=== PATIENT | male | born 1965 | race Caucasian/White ===

== ENCOUNTER 2019-09-18 21:05 | Emergency (ER) | payer MEDICARE ==
[2019-09-18] MEDS ORDERED: Ketorolac 60 MG/2 ML SDV IM ONE (21:22)
--- NOTE | 2019-09-18 21:22 | EDM.PDOC ---
ED HPI GENERAL MEDICAL PROBLEM - General Chief Complaint: Headache Stated Complaint: HEADACHES Time Seen by Provider: 09/18/19 21:22 Source of Information: Reports: Patient History Limitations: Reports: No Limitations - History of Present Illness INITIAL COMMENTS - FREE TEXT/NARRATIVE: HISTORY AND PHYSICAL: History of present illness: Patient is a 54-year-old male who presents to the emergency room with complaints of a generalized headache that has been dull but consistent x 1 week. He voices concern as he typically does not get headaches and if he does they usually only last a few hours and resolve on their own. Currently rating the pain approximately a 3 out of 10. Denies any photophobia or noise sensitivity. Patient denies any fever, chills, headache, change in vision, syncope or near syncope. Denies any chest pain, back pain, shortness of breath or cough. Denies any abdominal pain, nausea, vomiting, diarrhea, constipation or dysuria. Has not noted any blood in urine or stool. Patient has been eating and drinking appropriately. Upon my reevaluation the patient does mention some concern of some right elbow pain which has been ongoing for the past 3 weeks. He denies any injury, trauma or falls. He is right-handed and states the pain is more noticeable when he is being physically active. He denies any numbness, tingling or saddle paresthesias. Denies any weakness of the right upper extremity. He states he thinks he needs an x-ray. Patient is primarily Russian speaking and does have a family member at bedside that he would prefer to use over [facility] services (this service was offered to patient) Review of systems: As per history of present illness and below otherwise all systems reviewed and negative. Past medical history: As per history of present illness and as reviewed below otherwise noncontributory. Surgical history: As per history of present illness and as reviewed below otherwise noncontributory. Social history: See social history for further information Family history: As per history of present illness and as reviewed below otherwise noncontributory. Physical exam: General: Well-developed and well-nourished 54-year-old male. Alert and oriented. Nontoxic-appearing and in no acute distress. HEENT: Atraumatic, normocephalic, pupils equal and reactive bilaterally, negative for conjunctival pallor or scleral icterus, no pain with ocular movement, mucous membranes moist, TMs normal bilaterally, wears bilateral hearing aids, throat clear, neck supple, nontender, trachea midline. No drooling or trismus noted. No meningeal signs. No hot potato voice noted. Lungs: Clear to auscultation, breath sounds equal bilaterally, chest nontender. Heart: S1S2, regular rate and rhythm without overt murmur Abdomen: Soft, nondistended, nontender. Negative for masses or costovertebral tenderness. Pelvis: Stable nontender. Skin: Intact, warm, dry. No lesions or rashes noted. Extremities: Atraumatic, moves all extremities per self without difficulty or deficits, pain with palpation of the medial epicondyle - no juvencio tenderness. Neurovascular unremarkable. Neuro: Awake, alert, oriented. Cranial nerves II through XII unremarkable. Cerebellum unremarkable. Motor and sensory unremarkable throughout. Exam nonfocal. Notes: We discussed the risks versus benefits of doing a head CT at this time. He states he is very concerned as he has never had a headache for over 24 hours and this headache is been going on for 1 week. He does not describe this headache as the worst headache of his life. He does not have any neck pain or stiffness. Does not have any visual involvement. He has not recently had any Tylenol or ibuprofen, will give him Toradol IM. Patient now is declining the head CT. Will do x-ray of the right elbow. Headache has improved. X-ray shows no acute findings. We reviewed signs and symptoms that would prompt him to return to the emergency room. Supportive care measures were reviewed and discussed. Voices understanding and is agreeable to plan of care. Denies any further questions or concerns at this time. Diagnostics: Right elbow x-ray Therapeutics: Toradol IM Prescription: Diclofenac Impression: Headache Tendonitis Plan: 1. Rest, ice, elevate the affected extremity. You can buy a brace for tendinitis of the elbow which may help alleviate discomfort 2. Tylenol and/or Ibuprofen as needed for pain management. 3. If your headache worsens, new symptoms develop or you have any further concerning concerns you are more than welcome to return to the emergency department 4. Follow up with the Orthopedic provider if your elbow pain continues as we discussed. 5. Return to the ED as needed and as discussed. Definitive disposition and diagnosis as appropriate pending reevaluation and review of above. Headache Pain Score (Numeric/FACES): 6 - Related Data Allergies Allergy/AdvReac Type Severity Reaction Status Date / Time No Known Allergies Allergy Verified 09/18/19 21:18 Home Meds: Home Meds . [No Known Home Meds] 02/10/18 [History] Past Medical History - Past Health History Medical/Surgical History: Denies Medical/Surgical History - Infectious Disease History Infectious Disease History: Reports: None Social & Family History - Family History Family Medical History: Noncontributory - Caffeine Use Caffeine Use: Reports: Coffee ED ROS GENERAL - Review of Systems Review Of Systems: Comprehensive ROS is negative, except as noted in HPI. - Physical Exam Exam: See Below (See dictation) Course - Vital Signs Last Recorded V/S: Last Vital Signs Temp 98.1 F 09/18/19 21:19 Pulse 74 09/18/19 21:19 Resp 16 09/18/19 21:19 BP 125/86 09/18/19 21:19 Pulse Ox 96 09/18/19 21:19 - Orders/Labs/Meds Orders: Active Orders 24 hr Category Date Time Status Elbow Min 3V Rt [CR] Stat Exams 09/18/19 21:24 Ordered Meds: Medications Discontinued Medications Generic Name Dose Route Start Last Admin Trade Name Freq PRN Reason Stop Dose Admin Ketorolac Tromethamine 60 mg 09/18/19 21:22 09/18/19 21:27 Toradol IM 09/18/19 21:23 60 mg ONETIME ONE Administration Departure - Departure Time of Disposition: 21:51 Disposition: Home, Self-Care 01 Clinical Impression: Tendonitis Headache Qualifiers: Headache type: unspecified Headache chronicity pattern: episodic headache Intractability: not intractable Qualified Code(s): R51 - Headache - Discharge Information Instructions: General Headache Without Cause, [id number] Referrals: PCP,None [Primary Care Provider] - Forms: ED Department Discharge Additional Instructions: The following information is given to patients seen in the emergency department who are being discharged to home. This information is to outline your options for follow-up care. We provide all patients seen in our emergency department with a follow-up referral. The need for follow-up, as well as the timing and circumstances, are variable depending upon the specifics of your emergency department visit. If you don't have a primary care physician on staff, we will provide you with a referral. We always advise you to contact your personal physician following an emergency department visit to inform them of the circumstance of the visit and for follow-up with them and/or the need for any referrals to a consulting specialist. The emergency department will also refer you to a specialist when appropriate. This referral assures that you have the opportunity for follow-up care with a specialist. All of these measure are taken in an effort to provide you with optimal care, which includes your follow-up. Under all circumstances we always encourage you to contact your private physician who remains a resource for coordinating your care. When calling for follow-up care, please make the office aware that this follow-up is from your recent emergency room visit. If for any reason you are refused follow-up, please contact the [facility] Emergency Department at and asked to speak to the emergency department charge nurse. [facility] [address] [place] [id number] [facility] [address] [place] [address] 1. Rest, ice, elevate the affected extremity. You can buy a brace for tendonitis elbow which may help alleviate discomfort 2. Tylenol and/or Ibuprofen as needed for pain management. 3. If your headache worsens, new symptoms develop or you have any further concerning concerns you are more than welcome to return to the emergency department 4. Follow up with the Orthopedic provider if your elbow pain continues as we discussed. 5. Return to the ED as needed and as discussed. Sepsis Event Note - Focused Exam Vital Signs: Vital Signs Temp Pulse Resp BP Pulse Ox 09/18/19 21:19 98.1 F 74 16 125/86 96 Date Exam was Performed: 09/18/19 Time Exam was Performed: 21:51 - My Orders Last 24 Hours: My Active Orders 09/18/19 21:24 Elbow Min 3V Rt [CR] Stat - Assessment/Plan Last 24 Hours: My Active Orders 09/18/19 21:24 Elbow Min 3V Rt [CR] Stat
--- NOTE | 2019-09-18 22:38 | CR ---
INDICATION: Elbow pain for 3 weeks. TECHNIQUE: Three views the right elbow. COMPARISON: None. FINDINGS: There is no acute fracture, dislocation or elbow joint effusion. The joint spaces are preserved and the visualized soft tissues are unremarkable. IMPRESSION: No acute abnormality. Dictated by Kinga Lee MD @ Sep 18 2019 10:35PM Signed by Dr. Kinga Lee @ Sep 18 2019 10:36PM
== END 2019-09-18 22:28 | disposition home or self-care (01) ==
LOC: MW.ED 21:05
DX: R51 Headache (principal); M77.9 Enthesopathy, unspecified
CPT/HCPCS: 73080; 96372; 99284; J1885; 99283

== ENCOUNTER 2020-08-19 21:46 | Emergency (ER) | payer MEDICARE ==
--- NOTE | 2020-08-19 22:09 | EDM.PDOC ---
ED HPI GENERAL MEDICAL PROBLEM - General Chief Complaint: Abdominal Pain Stated Complaint: ABOMINAL PAIN Time Seen by Provider: 08/19/20 21:58 - History of Present Illness INITIAL COMMENTS - FREE TEXT/NARRATIVE: History of present illness: [] The patient has been here for 2 weeks visiting his niece. He has reported for the 2 weeks pain in the left groin. It happened after they lifted furniture while he was moving things with his niece. It is worse when he tries to lift. It is better when he relaxes. He has no fever or chills. He has no nausea or vomiting. He has no change in bowel or urine habits. In the past he has been told he has hematuria by a urologist. Review of systems: As per history of present illness and below otherwise all systems reviewed and negative. Past medical history: As per history of present illness and as reviewed below otherwise noncontributory. Surgical history: As per history of present illness and as reviewed below otherwise noncontributory. Social history: No reported history of drug or alcohol abuse. Family history: As per history of present illness and as reviewed below otherwise noncontributory. Physical exam: Constitutional - well developed, well-nourished and in no acute distress HEENT - normocephalic, no evidence of trauma - external nose and mouth normal - no mass in neck and no JVD - mucosae moist EYES - full EOM, PERRL, no icterus - no evidence of inflammation, injection, or drainage Respiratory - no respiratory distress, equal bilateral expansion, lungs clear to auscultation and no abnormal lung sounds Cardiovascular - Regular Rhythm with S1 and S2 appreciated and no murmur, gallop or rub. GI - abdomen soft without distension or organomegaly - normal bowel sounds - no guard or rebound -tenderness in the extreme left lower quadrant near the i nguinal ligament. -tenderness in the left inguinal canal at the highest reach with no mass. There is some swelling or perhaps soft tissue mass in the abdominal wall just above the inguinal canal and this is tender but certainly if this is a mass that is reducible at this time. Musculoskeletal no gross deformity of long bones or joints - no tenderness, swelling or edema Neurologic - Alert and oriented times four - CN II-XII grossly intact - motor sensory and coordination symmetrically normal Psychiatric - appropriate mood and affect with normal thought content Hematologic - No petechiae or purpura - mucosa appropriate color and sclera not pale - normal nail bed color and refill Integument - no rash or evidence of trauma - normal turgor Diagnostics: [] Therapeutics: [] Impression: [] Plan: [] Definitive disposition and diagnosis as appropriate pending reevaluation and review of above. Left Lower Abdomen Pain Score (Numeric/FACES): 10 - Related Data Allergies Allergy/AdvReac Type Severity Reaction Status Date / Time No Known Allergies Allergy Verified 08/19/20 21:59 Home Meds: Home Meds Acetaminophen/HYDROcodone [[place] 325-10 MG] 1 tab PO Q4H PRN #14 tab 08/20/20 [Rx] Ondansetron [Zofran ODT] 4 mg PO Q6H PRN #10 tab.dis 08/20/20 [Rx] Past Medical History - Past Health History Medical/Surgical History: Denies Medical/Surgical History Gastrointestinal History: Reports: Other (See Below) Other Gastrointestinal History: hernia-unknown type Dermatologic History: Reports: Other (See Below) Other Dermatologic History: herpes - Infectious Disease History Infectious Disease History: Reports: Herpes - Past Surgical History GI Surgical History: Reports: Other (See Below) Other GI Surgeries/Procedures: hernia-unknown type Social & Family History - Family History Family Medical History: No Pertinent Family History - Tobacco Use Tobacco Use Status *Q: Never Tobacco User Second Hand Smoke Exposure: No - Caffeine Use Caffeine Use: Reports: Coffee - Recreational Drug Use Recreational Drug Use: No ED ROS GENERAL - Review of Systems Review Of Systems: Comprehensive ROS is negative, except as noted in HPI. ED EXAM, GENERAL - Physical Exam Exam: See Below Free Text/Narrative:: My history and physical as in the HPI Course - Vital Signs Text/Narrative:: [id number] patient able to ambulate without any pain or discomfort. Urine has a few red cells. CT pending Last Recorded V/S: Last Vital Signs Temp 36.2 C 08/20/20 01:12 Pulse 64 08/20/20 01:12 Resp 18 08/20/20 01:12 BP 147/93 H 08/20/20 01:12 Pulse Ox 97 08/20/20 01:12 - Orders/Labs/Meds Labs: Laboratory Tests 08/19/20 Range/Units 22:05 Urine Color YELLOW Urine Appearance CLEAR Urine pH 7.0 (5.0-8.0) Ur Specific [place] 1.015 (1.001-1.035) Urine Protein NEGATIVE (NEGATIVE) mg/dL Urine Glucose (UA) NEGATIVE (NEGATIVE) mg/dL Urine Ketones NEGATIVE (NEGATIVE) mg/dL Urine Occult Blood SMALL H (NEGATIVE) Urine Nitrite NEGATIVE (NEGATIVE) Urine Bilirubin NEGATIVE (NEGATIVE) Urine Urobilinogen 0.2 (<2.0) EU/dL Ur Leukocyte Esterase NEGATIVE (NEGATIVE) Urine RBC 3-6 (0-2/HPF) Urine WBC 0-1 (0-5/HPF) Ur Epithelial Cells RARE (NONE-FEW) Urine Bacteria RARE (NEGATIVE) Meds: Medications Discontinued Medications Generic Name Dose Route Start Last Admin Trade Name Freq PRN Reason Stop Dose Admin Hydrocodone Bitart/Acetaminophen 1 tab 08/19/20 22:31 08/19/20 22:57 Acetaminophen/Hydrocodone 325-10 Mg Tab PO 08/19/20 22:32 1 tab ONETIME ONE Administration Departure - Departure Time of Disposition: 01:20 Disposition: Home, Self-Care 01 Condition: Good Clinical Impression: Inguinal hernia of left side without obstruction or gangrene - Discharge Information Prescriptions: Acetaminophen/HYDROcodone [[place] 325-10 MG] 1 tab PO Q4H PRN #14 tab PRN Reason: Pain (Severe 7-10) Ondansetron [Zofran ODT] 4 mg PO Q6H PRN #10 tab.dis PRN Reason: Nausea/Vomiting Instructions: Inguinal Hernia, Adult, [id number] Referrals: PCP,Not In Area [Primary Care Provider] - Forms: ED Department Discharge Additional Instructions: If the patient has pain in the left side with a lump that will not go away or vomiting he needs to return. [facility] - [facility] Professional Building [address] [place] [address], [address] [place] [address] The following information is given to patients seen in the emergency department who are being discharged to home. This information is to outline your options for follow-up care. We provide all patients seen in our emergency department with a follow-up referral. The need for follow-up, as well as the timing and circumstances, are variable depending upon the specifics of your emergency department visit. If you don't have a primary care physician on staff, we will provide you with a referral. We always advise you to contact your personal physician following an emergency department visit to inform them of the circumstance of the visit and for follow-up with them and/or the need for any referrals to a consulting specialist. The emergency department will also refer you to a specialist when appropriate. This referral assures that you have the opportunity for follow-up care with a specialist. All of these measure are taken in an effort to provide you with optimal care, which includes your follow-up. Under all circumstances we always encourage you to contact your private physician who remains a resource for coordinating your care. When calling for follow-up care, please make the office aware that this follow-up is from your recent emergency room visit. If for any reason you are refused follow-up, please contact the [facility] Emergency Department at and asked to speak to the emergency department charge nurse. Sepsis Event Note (ED) - Evaluation Sepsis Screening Result: No Definite Risk - Focused Exam Vital Signs: Vital Signs Temp Pulse Resp BP Pulse Ox 08/20/20 01:12 36.2 C 64 18 147/93 H 97 08/19/20 21:53 36.6 C 69 14 151/76 H 97
[2020-08-19] MEDS ORDERED: Acetaminophen/HYDROcodone 325-10 MG Tab PO ONE (22:31)
--- NOTE | 2020-08-20 00:41 | CT ---
INDICATION: Left groin pain. Hematuria TECHNIQUE: CT abdomen and pelvis without contrast. COMPARISON: None available FINDINGS: Lower chest: Minimal focal scarring at the lateral left lung base. Liver: The most superior hepatic dome is not imaged. Otherwise unremarkable. Spleen: Unremarkable. Pancreas: Unremarkable. Gallbladder and bile ducts: Apparent subtle ill-defined reticular densities within the gallbladder could represent sludge, poorly calcified gallstones or artifact. Adrenal glands: Unremarkable. Kidneys: Mild renal pelviectasis, left greater than right, without caliectasis or ureteral dilatation. No discrete, measurable urolithiasis. Apparent miniscule near calcific densities in the distal right ureter could be artifactual. GI tract: Unremarkable. Appendix is normal. Vascular structures: Mild atherosclerotic changes. Lymph nodes: Unremarkable. Miscellaneous: No significant free fluid or free air. A fat containing left inguinal hernias, with direct and indirect components, demonstrating mild stranding in a portion of the hernia. A small fat containing umbilical hernia. Pelvic Organs: Unremarkable. Bones: A foreshortened left femoral neck with a slightly shallow left acetabulum roof which could represent mild DDH. IMPRESSION: No significant obstructive uropathy or discrete, measurable urolithiasis. Apparent miniscule densities in the distal right ureter could be artifactual, without upstream ureteral dilatation. Correlate with urinalysis. A fat containing left inguinal hernia, demonstrating mild stranding/edema in a portion of the hernia which could represent partial incarceration or mild inflammation. Correlate clinically. No bowel involvement. Please note that all CT scans at this facility use dose modulation, iterative reconstruction, and/or weight-based dosing when appropriate to reduce radiation dose to as low as reasonably achievable. Dictated by Josue Carolina MD @ 08/20/2020 12:38:[address] Josue Carolina @ Aug 20 2020 12:38AM
== END 2020-08-20 01:35 | disposition home or self-care (01) ==
LOC: MW.ED 21:46
DX: K40.90 Unilateral inguinal hernia, without obstruction or gangrene, not specified as recurrent (principal)
CPT/HCPCS: 74176; 81001; 99284; A9270; 99283

== ENCOUNTER 2020-09-04 07:12 | Day surgery (SDC) | payer MEDICARE ==
[~2020-09-04 07:12] MED LIST: Lactated Ringers 1,000 ML IV SCH; ceFAZolin 2 GM in Premix Bag 1 BAG IV SCH
[2020-09-04] MEDS ORDERED: ceFAZolin 1 GM Vial ONE (07:23)
[2020-09-04] MEDS ORDERED: Bupivacaine 0.5% 10 ML SDV ONE (07:23)
[2020-09-04] MEDS ORDERED: fentaNYL 250 MCG/5 ML SDV ONE (07:27)
[2020-09-04] MEDS ORDERED: Midazolam 1 MG/ML 2 ML SDV ONE (07:27)
[2020-09-04] MEDS ORDERED: Propofol 200 MG/20 ML SDV ONE (07:27)
[2020-09-04] MEDS ORDERED: Ondansetron 4 MG/2 ML SDV ONE (07:27)
--- NOTE | 2020-09-04 08:10 | PCM.PREANE ---
Preanesthetic Assessment - Anesthesia/Transfusion/Family Hx Anesthesia History: Prior Anesthesia Without Reaction Family History of Anesthesia Reaction: No Transfusion History: No Prior Transfusion(s) - Review of Systems General: No Symptoms Pulmonary: No Symptoms Cardiovascular: No Symptoms Gastrointestinal: No Symptoms Neurological: No Symptoms Other: Reports: None - Physical Assessment NPO Status Date: 09/04/20 NPO Status Time: 00:01 Vital Signs: Last Vital Signs Temp 97.9 F 09/04/20 07:32 Pulse 70 09/04/20 07:32 Resp 16 09/04/20 07:32 BP 134/85 09/04/20 07:32 Pulse Ox 96 09/04/20 07:32 Height: 5 ft 9 in Weight: 178 lb Mental Status: Alert & Oriented x3 Dentition: Reports: Normal Dentition ROM/Head Extension: Full Lungs: Clear to Auscultation, Normal Respiratory Effort Cardiovascular: Regular Rate, Regular Rhythm - Allergies Allergies/Adverse Reactions: Allergies Allergy/AdvReac Type Severity Reaction Status Date / Time No Known Allergies Allergy Verified 08/29/20 11:43 - Anesthesia Plan Pre-Op Medication Ordered: None - Acknowledgements Anesthesia Type Planned: General Anesthesia Pt an Appropriate Candidate for the Planned Anesthesia: Yes Alternatives and Risks of Anesthesia Discussed w Pt/Guardian: Yes Pt/Guardian Understands and Agrees with Anesthesia Plan: Yes Additional Comments: 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, L hearing aids no cv problems speaks jordanian jose is translater tob none etoh none par no questions bmi 26 PreAnesthesia Questionnaire - Past Health History Medical/Surgical History: Denies Medical/Surgical History HEENT History: Reports: Hard of Hearing, Other (See Below) Other HEENT History: uses reading glasses Cardiovascular History: Reports: None Respiratory History: Reports: None Gastrointestinal History: Reports: PUD Other Gastrointestinal History: hernia-unknown type Genitourinary History: Reports: Other (See Below) Other Genitourinary History: hx of having hematuria Musculoskeletal History: Reports: Fracture Other Musculoskeletal History: hx of fx leg as a child Neurological History: Reports: None Psychiatric History: Reports: None Endocrine/Metabolic History: Reports: None Hematologic History: Reports: None Immunologic History: Reports: None Oncologic (Cancer) History: Reports: None Dermatologic History: Reports: None Other Dermatologic History: herpes - Infectious Disease History Infectious Disease History: Reports: Herpes - Past Surgical History Head Surgeries/Procedures: Reports: None HEENT Surgical History: Reports: Other (See Below) Other HEENT Surgeries/Procedures: surgery to repair eardrum and 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) Cardiovascular Surgical History: Reports: None Respiratory Surgical History: Reports: None GI Surgical History: Reports: Hernia, Inguinal Other GI Surgeries/Procedures: hernia-unknown type Male Surgical History: Reports: None Endocrine Surgical History: Reports: None Neurological Surgical History: Reports: None Musculoskeletal Surgical History: Reports: None Oncologic Surgical History: Reports: None - SUBSTANCE USE Tobacco Use Status *Q: Never Tobacco User Recreational Drug Use History: No - HOME MEDS Home Medications: Home Meds Acetaminophen/HYDROcodone [[place] 325-10 MG] 1 tab PO Q4H PRN #14 tab 08/20/20 [Rx] Ondansetron [Zofran ODT] 4 mg PO Q6H PRN #10 tab.dis 08/20/20 [Rx] Omeprazole Magnesium [Prilosec Otc] 20 mg PO DAILY 08/29/20 [History] - CURRENT (IN HOUSE) MEDS Current Meds: Current Medications Cefazolin Sodium/Dextrose 2 gm (/ Premix) 50 mls @ 100 mls/hr IV ONETIME MARÍA Lactated Ringer's (Ringers, Lactated) 1,000 mls @ 125 mls/hr IV ASDIRECTED MARÍA Last Admin: 09/04/20 07:41 Dose: 125 mls/hr Documented by: Discontinued Medications Bupivacaine HCl (Bupivacaine 0.5% 10 Ml Sdv) Confirm Administered Dose 10 ml .ROUTE .STK-MED ONE Stop: 09/04/20 07:24 Cefazolin Sodium (Cefazolin 1 Gm Vial) Confirm Administered Dose 1 gm .ROUTE .STK-MED ONE Stop: 09/04/20 07:24 Fentanyl (Fentanyl 250 Mcg/5 Ml Sdv) Confirm Administered Dose 250 mcg .ROUTE .STK-MED ONE Stop: 09/04/20 07:28 Lidocaine HCl (Lidocaine 1% 5 Ml Sdv) Confirm Administered Dose 5 ml .ROUTE . STK-MED ONE Stop: 09/04/20 07:30 Midazolam HCl (Midazolam 1 Mg/Ml 2 Ml Sdv) Confirm Administered Dose 2 mg .ROUTE .STK-MED ONE Stop: 09/04/20 07:28 Ondansetron HCl (Ondansetron 4 Mg/2 Ml Sdv) Confirm Administered Dose 4 mg .ROUTE .STK-MED ONE Stop: 09/04/20 07:28 Propofol (Propofol 200 Mg/20 Ml Sdv) Confirm Administered Dose 200 mg .ROUTE .STK-MED ONE Stop: 09/04/20 07:28
[2020-09-04] MEDS ORDERED: ePHEDrine 50 MG/ML SDV ONE (09:07)
[2020-09-04] MEDS ORDERED: fentaNYL 100 MCG/2 ML SDV IVPUSH PRN (09:12)
[2020-09-04] MEDS ORDERED: Ketorolac 30 MG/ML SDV ONE (09:26)
--- NOTE | 2020-09-04 09:50 | PCM.OPNOTE ---
- General Post-Op/Procedure Note Date of Surgery/Procedure: 09/04/20 Operative Procedure(s): Repair indirect and direct left inguinal hernia with medium Bard PerFix plug and patch Pre Op Diagnosis: Reducible left inguinal hernia Post-Op Diagnosis: Same Anesthesia Technique: General LMA (ASA II) Primary Surgeon: Hima Hsu Fluid Replacement, Intraop: 500 EBL in mLs: 10 Condition: Good Free Text/Narrative:: DICTATION [id number] CPT CODE 18821
[2020-09-04] MEDS ORDERED: Acetaminophen/HYDROcodone 325-5 MG Tab PO PRN (09:51)
[2020-09-04] MEDS ORDERED: Morphine 10 MG/ML Syringe IVPUSH PRN (09:51)
[2020-09-04] MEDS ORDERED: Ondansetron 4 MG/2 ML SDV IVPUSH PRN (09:51)
[2020-09-04] MEDS ORDERED: Lactated Ringers 1,000 ML IV SCH (10:00)
--- NOTE | 2020-09-04 10:42 | PCM.POSTAN ---
POST ANESTHESIA ASSESSMENT - MENTAL STATUS Mental Status: Alert (no anesthetic problems), Oriented - VITAL SIGNS Vital Signs: Last Vital Signs Temp 97.9 F 09/04/20 09:45 Pulse 75 09/04/20 10:36 Resp 14 09/04/20 10:36 BP 128/80 09/04/20 10:36 Pulse Ox 91 L 09/04/20 10:36 - RESPIRATORY Respiratory Status: Respiratory Rate WNL, Airway Patent, O2 Saturation Stable - CARDIOVASCULAR CV Status: Pulse Rate WNL, Blood Pressure Stable - GASTROINTESTINAL GI Status: No Symptoms - POST OP HYDRATION Hydration Status: Adequate & Stable
--- NOTE | 2020-09-04 11:56 | PCM48HPAN ---
Post Anesthesia Note - EVALUATION WITHIN 48HRS OF ANESTHETIC Vital Signs in Normal Range: Yes Patient Participated in Evaluation: Yes Respiratory Function Stable: Yes Airway Patent: Yes Cardiovascular Function Stable: Yes Hydration Status Stable: Yes Pain Control Satisfactory: Yes Nausea and Vomiting Control Satisfactory: Yes Mental Status Recovered: Yes Vital Signs: Last Vital Signs Temp 97.9 F 09/04/20 09:45 Pulse 75 09/04/20 10:36 Resp 14 09/04/20 10:36 BP 128/80 09/04/20 10:36 Pulse Ox 91 L 09/04/20 10:36
--- NOTE | 2020-09-04 16:35 | OR ---
SURGEON: Hima Hsu M.D. DATE OF PROCEDURE: 09/04/2020 OPERATION PERFORMED: Repair of left inguinal hernia with medium Bard PerFix plug and patch. PRIMARY SURGEON: Hima Hsu MD ANESTHESIA: General LMA. ASA CLASSIFICATION: II. PREOPERATIVE DIAGNOSIS: Left inguinal hernia. POSTOPERATIVE DIAGNOSIS: Left inguinal hernia. ESTIMATED BLOOD LOSS: 10 mL. INTRAOPERATIVE FLUID REPLACEMENT: 500 mL of crystalloid. DESCRIPTION OF PROCEDURE: The patient was taken to the operating room and placed on the operating table in the supine position. Time-out was called for appropriate identification of the patient and procedure. The surgical site had been marked prior to the patient entering the operating room. Thigh-high TEDs and sequential compression boots were placed. Following satisfactory attainment of general anesthesia with placement of an LMA, the abdomen was prepped with DuraPrep solution and sterile drapes were applied. Skin incision was marked out on the left inguinal crease, and the skin infiltrated with 10 mL of 0.5% Marcaine solution. Skin incision was made and deepened through the subcutaneous tissue obtaining hemostasis with the use of electrocautery. Dissection was carried down to the external oblique fascia, which was opened in the direction of its fibers. The cord was identified and from the hernia sac. The cord was then encircled with a [place] drain. The patient did have both a direct and indirect hernia. The sac was dissected away from the cord and reduced, and the plug placed into the internal ring and secured with 0 Ethibond suture. The patch was then placed over the direct defect and secured medially and inferiorly to Elie's ligament transitioning to the inguinal ligament and superiorly to transversalis fascia. The wings of the patch were brought around the cord, and the cord was encircled. A stitch was placed lateral. Repair was carried out with interrupted 0 Ethibond sutures. All sutures were placed under direct vision and held with hemostats until the final suture had been placed. All sutures except the lateral stitch were secured. The patient was given a Valsalva maneuver to 42 cm of water, and the repair was solid. The lateral suture was then secured with care taken not to impinge on the cord. The wound was then inspected for hemostasis, and small bleeding sites were electrocoagulated. The incision was irrigated with 1% Ancef solution and all fluid aspirated. The cord was returned to its anatomic location, and the external oblique fascia closed with running 3-0 Vicryl. Yolanda's fascia was closed with running 3-0 Vicryl, and the skin was reapproximated with subcuticular 4-0 Monocryl reinforced with half-inch Steri- Strips. Sterile Tegaderm pad was placed as a dressing. Sponge, needle, and instrument counts were all correct. Following emergence from anesthesia and extubation, the patient was taken to recovery room in stable condition. BARBARA / CONRAD /[id number]
== END 2020-09-04 12:11 | disposition home or self-care (01) ==
LOC: MW.SDS 07:12
PROVIDERS: ATTEND Surgery
DX: K40.90 Unilateral inguinal hernia, without obstruction or gangrene, not specified as recurrent (principal); K42.9 Umbilical hernia without obstruction or gangrene; Z79.899 Other long term (current) drug therapy; Z98.890 Other specified postprocedural states
CPT/HCPCS: 49505; A9270; C1781; J0690; J1885; J2250; J2704; J3010; J3490; J7120; 00830; J2405

== ENCOUNTER 2021-09-28 22:10 | Inpatient (IN) | payer MEDICARE, SELFPAY ==
[2021-09-29] MEDS ORDERED: Lactated Ringers 1,000 ML IV STA ×2 (00:49→03:09)
[2021-09-29] MEDS ORDERED: cefTRIAXone 1 GM in Sodium Chloride 0.9% 50 ML IV ONE (00:49)
[2021-09-29] MEDS ORDERED: Ketorolac 30 MG/ML SDV IVPUSH STA (00:49)
[2021-09-29] MEDS ORDERED: Ondansetron 4 MG/2 ML SDV IVPUSH ONE (01:02)
[2021-09-29] MEDS ORDERED: Iopamidol 755 MG/ML 500 ML Multipack Bottle IVPUSH ONE (02:46)
[2021-09-29] MEDS ORDERED: Azithromycin 500 MG in Sodium Chloride 0.9% 250 ML IV ONE (03:06)
[2021-09-29] MEDS ORDERED: Albuterol/Ipratropium 3.0-0.5 MG/3 ML Neb Soln NEB PRN (04:59)
[2021-09-29] MEDS ORDERED: Acetaminophen 325 MG Tab PO PRN (04:59)
[2021-09-29] MEDS ORDERED: Ondansetron 4 MG/2 ML SDV IVPUSH PRN (05:00)
[2021-09-29] MEDS ORDERED: Acetaminophen 500 MG Tab ONE (05:34)
[2021-09-29] MEDS: Lactated Ringers 1,000 ML IV SCH ×3 (05:38→23:33)
[2021-09-29] MEDS: Enoxaparin 40 MG/0.4 ML Syringe SUBCUT SCH (10:07)
[2021-09-29] MEDS: Pantoprazole 40 MG in Sodium Chloride 0.9% 10 ML IVPUSH SCH (10:07)
[2021-09-29] MEDS: Acetaminophen 500 MG Tab PO PRN ×2 (16:31→23:35)
[2021-09-30] MEDS ORDERED: cefTRIAXone 1 GM in Sodium Chloride 0.9% 50 ML IV SCH (01:00)
[2021-09-30 06:37] LABS: CARBON DIOXIDE,CO2 27.8 mmol/L (21.0-32.0); POTASSIUM,K 4.4 mmol/L (3.5-5.1)
[2021-09-30] MEDS: Enoxaparin 40 MG/0.4 ML Syringe SUBCUT SCH (08:23)
[2021-09-30] MEDS: Pantoprazole 40 MG in Sodium Chloride 0.9% 10 ML IVPUSH SCH (08:23)
[2021-09-30] MEDS ORDERED: Azithromycin 500 MG in Sodium Chloride 0.9% 250 ML IV SCH (09:00)
== END 2021-09-30 13:05 | disposition home or self-care (01) | DRG 871 ==
LOC: MW.ED 22:10 → MW.MS 09-29 03:49
PROVIDERS: ADMIT Student in an Organized Health Care Education/Training Program; ATTEND Student in an Organized Health Care Education/Training Program
DX: A41.9 Sepsis, unspecified organism (principal); J18.9 Pneumonia, unspecified organism; J96.01 Acute respiratory failure with hypoxia; E87.1 Hypo-osmolality and hyponatremia; N12 Tubulo-interstitial nephritis, not specified as acute or chronic; R65.20 Severe sepsis without septic shock; Z20.822 Contact with and (suspected) exposure to COVID-19; R31.9 Hematuria, unspecified
CPT/HCPCS: 36415; 71045; 74177; 80053; 81001; 83605; 85025; 85610; 87040 ×2; 87086; J0456; J0696; J1885; J2405; J7050; J7120 ×2; Q9967; U0002; 96365; 96375; 99285-25; A9270-GY; C9113; J1650; J3490